=== PATIENT | female | born 1960 | race Caucasian/White ===

== ENCOUNTER → 2016-09-04 | Outpatient (CLI) | payer BC | LOC: MC.RAD 08:20 | DX: Z12.31 Encounter for screening mammogram for malignant neoplasm of breast (principal) ==

== ENCOUNTER 2017-10-28 07:10 | Day surgery (SDC) | payer BC ==
[~2017-10-28] VITALS: Ht 160 cm; Wt 99.4 kg
[2017-10-28] MEDS ORDERED: CALCIUM 600MG+D1 TAB PO (07:27)
[2017-10-28] MEDS ORDERED: MEVACOR 20M20 MG/TAB PO (07:27)
[2017-10-28] MEDS ORDERED: ASPIRIN 81M81 MG/TA2 PO (07:27)
[2017-10-28] MEDS ORDERED: VITAMIN D 1001000 IU PO (07:28)
[2017-10-28 07:29] VITALS: BP 155/84; PULSE 72; TEMP 98.1
[2017-10-28 09:00] VITALS: BP 170/91; PULSE 72; TEMP 98.1
[2017-10-28 09:15] VITALS: BP 143/74; PULSE 78
[2017-10-28 09:30] VITALS: BP 151/83; PULSE 67
== END 2017-10-28 09:45 | disposition home or self-care (01) ==
LOC: SDCO 07:10
DX: K22.2 Esophageal obstruction (principal); K44.9 Diaphragmatic hernia without obstruction or gangrene; K29.30 Chronic superficial gastritis without bleeding; K29.80 Duodenitis without bleeding; Z85.3 Personal history of malignant neoplasm of breast; Z90.710 Acquired absence of both cervix and uterus; Z79.82 Long term (current) use of aspirin
CPT/HCPCS: C1726; J2250; J3010; J7030